=== PATIENT | female | born 1985 | race African-American/Black ===

== ENCOUNTER 2023-04-12 20:49 | Emergency (ER) | payer OTHER ==
[2023-04-12 21:20] VITALS: BP 142/99; PULSE 94; RESP 18; TEMP 98.2; BMI 46.7
[2023-04-12 23:04] LABS: HEMATOCRIT 41.6 % (32.4-45.2); HEMOGLOBIN 13.7 G/dL (10.7-15.3); MCH 26.2 pg (25.7-33.7); MEAN CELL VOLUME 79.5 fl (80-96); MEAN PLT VOLUME 8.7 fl (7.5-11.1); PLATELET COUNT 322.4 10^3/uL (134-434); RBC 5.23 10^6/uL (3.60-5.2); RDW 16.6 % (11.6-15.6); WHITE BLOOD COUNT 7.5 10^3/uL (4.0-10.8)
[2023-04-12 23:18] LABS: ALBUMIN 4.5 g/dl (3.4-5.0); BILIRUBIN,TOTAL 0.3 mg/dl (0.2-1); CALCIUM 9.4 mg/dl (8.5-10.1); CREATININE 0.9 mg/dl (0.6-1.3); POTASSIUM 3.8 mmol/L (3.5-5.1); TOT PROT 7.5 g/dl (6.4-8.2)
== END 2023-04-13 02:05 | disposition home or self-care (01) ==
LOC: FER 20:49
DX: R20.0 Anesthesia of skin (principal); M54.50 Low back pain, unspecified; G89.29 Other chronic pain; R07.89 Other chest pain
CPT/HCPCS: 36415; 80053; 82550; 84484; 85027; 93005; 99284-25